=== PATIENT | female | born 1965 | race Caucasian/White ===

== ENCOUNTER 2017-09-27 08:18 | Day surgery (SDC) | payer BC ==
[~2017-09-27] VITALS: Ht 167.6 cm; Wt 102.0 kg
[~2017-09-27 08:18] MED LIST: DIPATR PO; LISI20 PO; OMEP20ER PO; PROM25 PO
== END 2017-09-27 12:16 | disposition home or self-care (01) ==
LOC: ORSCSDS 08:18
DX: Z12.11 Encounter for screening for malignant neoplasm of colon (principal); D12.0 Benign neoplasm of cecum; D12.3 Benign neoplasm of transverse colon; D12.2 Benign neoplasm of ascending colon; D12.4 Benign neoplasm of descending colon; D12.8 Benign neoplasm of rectum; K63.5 Polyp of colon; K64.8 Other hemorrhoids; K64.4 Residual hemorrhoidal skin tags; F17.210 Nicotine dependence, cigarettes, uncomplicated; I10 Essential (primary) hypertension; E11.9 Type 2 diabetes mellitus without complications; Z79.899 Other long term (current) drug therapy
CPT/HCPCS: 82947; 88305; J1980; J7040; J7120

== ENCOUNTER 2019-04-08 07:57 | Day surgery (SDC) | payer BC ==
[~2019-04-08] VITALS: Ht 167.6 cm; Wt 94.6 kg
[2019-04-08] MEDS ORDERED: ATOR10 (08:26)
[2019-04-08] MEDS ORDERED: SITA100T2 (08:26)
[2019-04-08] MEDS ORDERED: FARXIGA10 MG (08:27)
[2019-04-08] MEDS ORDERED: Norco 10-325 T1 EACH (08:27)
== END 2019-04-08 11:10 | disposition home or self-care (01) ==
LOC: ORSCSDS 07:57
PROVIDERS: Internal Medicine Gastroenterology
PROC: 0DBK8ZX Excision of Ascending Colon, Via Natural or Artificial Opening Endoscopic, Diagnostic (ICD-10-PCS; principal; 2019-04-08 09:15)
PROC: 0DBL8ZX Excision of Transverse Colon, Via Natural or Artificial Opening Endoscopic, Diagnostic (ICD-10-PCS; principal; 2019-04-08 09:15)
DX: Z86.010 Personal history of colon polyps (principal); D12.3 Benign neoplasm of transverse colon; D12.2 Benign neoplasm of ascending colon; K64.4 Residual hemorrhoidal skin tags; E78.5 Hyperlipidemia, unspecified; I10 Essential (primary) hypertension; F17.210 Nicotine dependence, cigarettes, uncomplicated; E11.9 Type 2 diabetes mellitus without complications; Z79.899 Other long term (current) drug therapy
CPT/HCPCS: 82947; 88305; J2704; J7120

== ENCOUNTER 2020-09-16 09:34 | Day surgery (SDC) | payer BC ==
[~2020-09-16] VITALS: Ht 167.6 cm; Wt 104.2 kg
[~2020-09-16 09:34] MED LIST changes: +ATOR10; +ATOR10 PO; +FARXIGA10 MG; +FARXIGA10 MG PO; +Norco 10-325 T1 EACH; +Phentermine HCl30 MG PO; +SITA100T2; +SITA100T2 PO
[2020-09-16] MEDS ORDERED: BASAGLAR K100 UNIT/7 SC (09:57)
== END 2020-09-16 11:32 | disposition home or self-care (01) ==
LOC: ORSCSDS 09:34
DX: Z86.010 Personal history of colon polyps (principal); Z80.0 Family history of malignant neoplasm of digestive organs; D12.3 Benign neoplasm of transverse colon; K62.1 Rectal polyp; K64.8 Other hemorrhoids; I10 Essential (primary) hypertension; E78.5 Hyperlipidemia, unspecified; F17.210 Nicotine dependence, cigarettes, uncomplicated; Z79.899 Other long term (current) drug therapy
CPT/HCPCS: 82947; 88305; J2704; J7120

== ENCOUNTER 2021-09-02 09:08 | Day surgery (SDC) | payer BC ==
[~2021-09-02] VITALS: Ht 167.6 cm; Wt 61.7 kg
[~2021-09-02 09:08] MED LIST changes: +BASAGLAR K100 UNIT/7 SC
== END 2021-09-02 12:05 | disposition home or self-care (01) ==
LOC: ORSCSDS 09:08
PROVIDERS: Internal Medicine Gastroenterology
PROC: 0DBL8ZX Excision of Transverse Colon, Via Natural or Artificial Opening Endoscopic, Diagnostic (ICD-10-PCS; principal; 2021-09-02 10:30)
PROC: 0DBK8ZX Excision of Ascending Colon, Via Natural or Artificial Opening Endoscopic, Diagnostic (ICD-10-PCS; principal; 2021-09-02 10:30)
PROC: 0DBN8ZX Excision of Sigmoid Colon, Via Natural or Artificial Opening Endoscopic, Diagnostic (ICD-10-PCS; principal; 2021-09-02 10:30)
PROC: 0DBP8ZX Excision of Rectum, Via Natural or Artificial Opening Endoscopic, Diagnostic (ICD-10-PCS; principal; 2021-09-02 10:30)
DX: Z12.11 Encounter for screening for malignant neoplasm of colon (principal); Z86.010 Personal history of colon polyps; D12.2 Benign neoplasm of ascending colon; D12.3 Benign neoplasm of transverse colon; D12.5 Benign neoplasm of sigmoid colon; D12.8 Benign neoplasm of rectum; K57.30 Diverticulosis of large intestine without perforation or abscess without bleeding; K64.8 Other hemorrhoids; K64.4 Residual hemorrhoidal skin tags; I10 Essential (primary) hypertension; E11.9 Type 2 diabetes mellitus without complications; F17.210 Nicotine dependence, cigarettes, uncomplicated; Z79.899 Other long term (current) drug therapy
CPT/HCPCS: 82947; 88305; J2704; J7040; J7120